=== PATIENT | male | born 1955 ===

== ENCOUNTER 2018-02-17 08:03 | Day surgery (SDC) | payer BC ==
[2018-02-13 10:45] VITALS: BMI 23.7
[2018-02-17] MEDS ORDERED: Lidocaine 2% Inj (20ml) ONE (08:51)
[2018-02-17] MEDS ORDERED: Propofol 10 mg/ml Inj (20 ML) ONE ×3 (08:51→09:39)
[2018-02-17] MEDS ORDERED: Sodium Chloride 0.9% 1,000 ML IV SCH (10:00)
[2018-02-17 10:31] VITALS: O2SAT 100
[2018-02-17 10:43] VITALS: BP 112/72; PULSE 71; RESP 14; TEMP 98
== END 2018-02-17 11:02 | disposition home or self-care (01) ==
LOC: ENDO 08:03
PROVIDERS: ATTEND Internal Medicine
DX: K21.0 Gastro-esophageal reflux disease with esophagitis (principal); K22.70 Barrett's esophagus without dysplasia; K29.50 Unspecified chronic gastritis without bleeding; K44.9 Diaphragmatic hernia without obstruction or gangrene; Z12.11 Encounter for screening for malignant neoplasm of colon; K63.5 Polyp of colon; K62.1 Rectal polyp; K64.8 Other hemorrhoids; Z86.010 Personal history of colon polyps
CPT/HCPCS: 43239; 45380; 88305; 88312; 88342; J2704; J7030; J7040